=== PATIENT | male | born 1990 | race Two or more races ===

== ENCOUNTER → 2021-02-12 | Outpatient (CLI) | payer BC ==
--- NOTE | 2021-02-12 16:41 | MR ---
EXAMINATION TYPE: MR brain and iac wo/w con DATE OF EXAM: 02/12/2021 COMPARISON: NONE HISTORY: 31-year-old male H93.19, Right sided tinnitus TECHNIQUE: Multiplanar, multisequence images of the brain and brainstem were acquired before and aft er administration of 7 mL IV Gadavist. Diffusion weighted imaging was performed. Additional coned-d own sequences through the internal auditory canals and posterior cranial fossa before and after IV co ntrast administration. FINDINGS: Diffusion weighted images demonstrate no evidence of an acute ischemic lesion in the brain. T2/FLAIR weighted sequences show a view punctate bright white matter foci measuring up to 4 mm in the subcortical and periventricular white matter regions of the left cerebral hemisphere. A larger 8 mm focus is present in the left periatrial white matter, axial image 20. Midline structures demonstrate normal morphology. The craniocervical junction is normal. Mild cerebral cortical volume loss somewhat more than expected for patient's age. The ventricles are of normal caliber. There is no evidence of an acute intracranial hemorrhage, infarct, mass, mass-effect or an extra-axia l fluid collection. There is no cerebellopontine angle mass. The internal auditory canals are symmetric. Brainstem and skull base abnormalities are not seen. Post contrast images demonstrate no evidence of pathologic enhancement in the posterior cranial lynn a or the internal auditory canals. There is no abnormal enhancement of the labyrinths. Mild mucosal thickening ethmoid air cells. Globes are intact. IMPRESSION: 1. Mild cerebral cortical volume loss/atrophy, somewhat more than expected for patient's age. Clinica lly correlate. No acute intracranial abnormality seen. 2. A few foci of bright white matter change in the left cerebral hemisphere, largest focus measuring 8 mm adjacent to the atrium of the left lateral ventricle. Findings are nonspecific. Correlate to exc lude chronic migraines or demyelinating disease. 3. No specific abnormality on acoustic MRI. 4. Mild chronic ethmoid sinus disease.
== END | disposition home or self-care (01) ==
LOC: RADMRIMAIN 14:51
PROVIDERS: ATTEND Otolaryngology
DX: J32.2 Chronic ethmoidal sinusitis (principal); R90.82 White matter disease, unspecified
CPT/HCPCS: 70553; A9585